=== PATIENT | female | born 2000 | race Two or more races ===

== ENCOUNTER 2025-10-03 04:00 | Inpatient (IN) | payer OTHER ==
[~2025-10-03] VITALS: Ht 152.4 cm; Wt 3.2 kg
[2025-10-03 02:23] VITALS: BP 95/55
[2025-10-03] MEDS ORDERED: PRENATAL CAPLE1 EAC1 PO (06:27)
[2025-10-03] MEDS ORDERED: IRON240 MG PO (06:28)
[2025-10-03] MEDS ORDERED: ZOFRAN8 MG PO (06:28)
[2025-10-03] MEDS ORDERED: PEPCID AC20 MG PO (06:29)
[2025-10-03 07:57] VITALS: BP 121/72; BP 95/55
[2025-10-03] MEDS ORDERED: RINGERS SOLUTION,LACTATED 1,000 ML IV SCH (08:30)
[2025-10-03] MEDS ORDERED: OXYTOCIN 500 ML IV ONE (08:30)
[2025-10-03 09:10] LABS: BASO % 0.3 % (0.1-1.2); EOS # 0.01 (0.04-0.54); EOS % 0.1 % (0.7-7.0); LYMPH # 2.28 (1.18-3.74); LYMPH % 25.9 % (19.3-53.1); MEAN PLATELET VOLUME 10.90 fl (9.4-12.4); MONO # 0.45 (0.24-0.82); MONO % 5.1 % (4.7-12.5); NEUT # 5.91 (1.56-6.13); NEUT % 67.3 % (34.0-71.1); RED CELL DISTRIBUTION WIDTH 19.2 % (11.6-14.4)
[2025-10-03 09:29] LABS: INR < 0.93
[2025-10-03 09:49] LABS: ALT/SGPT 24.0 U/L (12-78); AST/SGOT 21.0 U/L (15-37); BILIRUBIN TOTAL 0.57 mg/dL (0.3-1.2); BUN CREA RATIO 13.0 (7.0-25.0); CREATININE SERUM 0.48 mg/dL (0.55-1.02); GFR 155.14; GLOBULINA 3.9 G/DL (2.4-3.5); GLUCOSE FASTING 87.0 mg/dL (65-100); OSMOLALITY SERUM 278.0 MOSM/KG (275-295)
[2025-10-03 10:08] VITALS: BP 102/66
[2025-10-03] MEDS ORDERED: MORPHINE SULFATE 4 MG/ML CARTRIDGE IV PRN (10:15)
[2025-10-03] MEDS ORDERED: OXYTOCIN 10 UNITS/ML VIAL IV ONE (13:00)
[2025-10-03] MEDS ORDERED: ERYTHROMYCIN BASE OPHT 1GM EACH TUBE OP ONE (13:00)
[2025-10-03] MEDS ORDERED: CEFAZOLIN SODIUM 1,000 MG VIAL IV ONE (14:30)
[2025-10-03 16:19] VITALS: BP 113/73
[2025-10-03] MEDS ORDERED: OXYTOCIN 1,000 ML IV SCH (19:45)
[2025-10-03] MEDS ORDERED: MORPHINE SULFATE 4 MG/ML VIAL IV PRN (20:00)
[2025-10-03 20:30] VITALS: BP 109/64
[2025-10-03] MEDS ORDERED: SOD FERRIC GLUC COMPLX/SUCROSE 62.5 MG/5 ML AMPUL IV SCH (21:00)
[2025-10-04 01:28] VITALS: BP 101/64
[2025-10-04 08:00] VITALS: BP 105/70
[2025-10-04 08:00] LABS: BASO % 0.1 % (0.1-1.2); EOS # 0.01 (0.04-0.54); EOS % 0.1 % (0.7-7.0); LYMPH # 1.97 (1.18-3.74); LYMPH % 13.9 % (19.3-53.1); MEAN PLATELET VOLUME 11.20 fl (9.4-12.4); MONO # 0.74 (0.24-0.82); MONO % 5.2 % (4.7-12.5); NEUT # 11.30 (1.56-6.13); NEUT % 80.0 % (34.0-71.1); RED CELL DISTRIBUTION WIDTH 18.5 % (11.6-14.4)
[2025-10-04] MEDS ORDERED: OxyCODONE HCL 5 MG TABLET (ROXICODONE) PO PRN (10:30)
[2025-10-04 16:29] VITALS: BP 92/53
[2025-10-05 01:41] VITALS: BP 100/62
[2025-10-05 08:47] VITALS: BP 96/60
== END 2025-10-05 18:16 | disposition home or self-care (01) | DRG 788 ==
LOC: OBS/DEL 04:00 → OB/GYN 08:06 → LDR 08:06 → O/R 13:20 → OB/GYN 16:00
PROVIDERS: Obstetrics & Gynecology; ADMIT Obstetrics & Gynecology Gynecology; ATTEND Obstetrics & Gynecology Gynecology
PROC: 4A1HXCZ Monitoring of Products of Conception, Cardiac Rate, External Approach (ICD-10-PCS; 2025-10-03)
PROC: 10D00Z1 Extraction of Products of Conception, Low, Open Approach (ICD-10-PCS; principal; 2025-10-03 12:00)
DX: O33.8 Maternal care for disproportion of other origin (principal); Z3A.38 38 weeks gestation of pregnancy; Z37.0 Single live birth